=== PATIENT | female | born 1995 | race Caucasian/White ===

== ENCOUNTER 2017-08-27 09:54 | Emergency (ER) | payer OTHER ==
[2017-08-27 10:10] VITALS: BP 138/72; PULSE 96; TEMP 98.5; BMI 33.6
--- NOTE | 2017-08-27 11:55 | PDOC ---
History of Present Illness - General Chief Complaint: Sore Throat Stated Complaint: COUGH, THROAT PAIN Time Seen by Provider: 08/27/17 10:35 History Source: Patient Exam Limitations: No Limitations - History of Present Illness Initial Comments: 08/27/17 11:51 Mom came in with 9-month-old son, both ill with cough, fevers, earache and sore throat pain. Runny nose of clear drainage, general body aches. Modifying Factors: improves with: cold therapy Associated Symptoms: reports: cough, fever/chills, headaches, malaise Past History - Travel Traveled outside of the country in the last 30 days: No Close contact w/someone who was outside of country & ill: No - Past Medical History Allergies/Adverse Reactions: Allergies Allergy/AdvReac Type Severity Reaction Status Date / Time No Known Allergies Allergy Verified 08/27/17 10:10 Home Medications: Ambulatory Orders Oseltamivir Phosphate [Tamiflu -] 75 mg PO BID #10 capsule 08/27/17 COPD: No - Suicide/Smoking/Psychosocial Hx Smoking History: Never smoked Review of Systems - Review of Systems Able to Perform ROS?: Yes Is the patient limited Kazakh proficient: Yes Constitutional: Yes: Symptoms Reported, See HPI, Chills, Fever, Malaise HEENTM: Yes: Symptoms Reported, See HPI, Nose Congestion Respiratory: Yes: See HPI, Cough, Wheezing ABD/GI: Yes: Symptoms Reported Integumentary: Yes: Symptoms Reported All Other Systems: Reviewed and Negative *Physical Exam - Vital Signs Last Vital Signs Temp Pulse Resp BP Pulse Ox 98.5 F 96 H 18 138/72 99 08/27/17 10:07 08/27/17 10:07 08/27/17 10:07 08/27/17 10:07 08/27/17 10:07 - Physical Exam General Appearance: Yes: Nourished, Appropriately Dressed, Apparent Distress HEENT: positive: TMs Normal (just a but landmarks easily visualized), Nasal Congestion, Rhinorrhea. 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 intact, Fully Oriented, Alert, Normal Mood/ Affect, Normal Response, Motor Strength 11/19 ED Treatment Course - ADDITIONAL ORDERS Additional order review: Laboratory Results 08/27/17 11:07 Urine HCG, Qual Negative *DC/Admit/Observation/Transfer Diagnosis at time of Disposition: Influenzal acute upper respiratory infection - Discharge Dispostion Disposition: HOME Condition at time of disposition: Stable Admit: No - Referrals - Patient Instructions Printed Discharge Instructions: DI for Viral Upper Respiratory Infection -- Adult Additional Instructions: Rest, drink lots of fluids: Teas, water, soups, Pedialyte Saltwater gargles Steamy showers/seem to face break up mucus Old-fashioned treatments help! Avoid contact with others until fevers and cough resolved as this is very contagious Lots of handwashing and good hygiene Continue [id number] medications for symptomatic relief Tylenol or Motrin for fever and pain Take all of Tamiflu as directed: 1 tab every 12 hours for 5 days Followup with private physician in one to 2 days as needed or if worsening Return to emergency department for worsened symptoms, fevers, dehydration Influenza takes between 5 and 7 days for resolution To not participate in any activity, work, or school until fevers and cough are gone for at least one day - Post Discharge Activity Forms/Work/School Notes: Back to Work
== END 2017-08-27 12:06 | disposition home or self-care (01) ==
LOC: JERFT 09:54
DX: J11.1 Influenza due to unidentified influenza virus with other respiratory manifestations (principal); B97.89 Other viral agents as the cause of diseases classified elsewhere
CPT/HCPCS: 84703; 99281-25

== ENCOUNTER 2017-11-21 23:49 | Emergency (ER) | payer OTHER ==
--- NOTE | 2017-11-22 00:15 | PDOC ---
History of Present Illness - General Chief Complaint: Pain, Acute Stated Complaint: KNEE INJURY Time Seen by Provider: 11/22/17 00:14 History Source: Patient - History of Present Illness Initial Comments: 11/22/17 01:04 22 year old female reports feeling a pop to left knee while playing on the trampoline. as per patient patient unable to fully weight bear due to extreme pain. LMP: 11/21/2017 pmhx : asthma Past History - Past Medical History Allergies/Adverse Reactions: Allergies Allergy/AdvReac Type Severity Reaction Status Date / Time No Known Allergies Allergy Verified 11/22/17 00:18 Home Medications: Ambulatory Orders NK [No Known Home Medication] 11/22/17 COPD: No - Suicide/Smoking/Psychosocial Hx Smoking History: Never smoked Review of Systems - Review of Systems Able to Perform ROS?: Yes Is the patient limited Bhutanese proficient: No Constitutional: No: Symptoms Reported, See HPI, Chills, Diaphoresis, Fever, Loss of Appetite, Malaise, Night Sweats, Weakness, Weight Stable, Unintentional Wgt. Loss, Unexplained wgt Loss, Other Musculoskeletal: Yes: Joint Pain (left knee pain) *Physical Exam - Vital Signs 11/22/17 01:07 Last Vital Signs Temp Pulse Resp BP Pulse Ox 97.4 F L 82 20 118/76 99 11/22/17 00:18 11/22/17 00:18 11/22/17 00:18 11/22/17 00:18 11/22/17 00:18 - Physical Exam General Appearance: Yes: Appropriately Dressed Musculoskeletal: positive: Decreased Range of Motion Extremity: positive: Other (limited rom of left knee, unable to weightbear. no swelling no deformity. able leg raise) Integumentary: positive: Normal Color, Dry, Warm Neurologic: positive: Fully Oriented, Alert, Normal Mood/Affect Heart Score/ECG Review - ECG Intrepretation Rhythm: Regular Rhythm Comment:: 12/09/17 05:52 nsr: 91 bpm prolonged Qt: 408/501ms Progress Note - Progress Note Progress Note: A: left knee injury P xray knee immobilizer ortho follow up *DC/Admit/Observation/Transfer Diagnosis at time of Disposition: Injury of left knee Qualifiers: Encounter type: initial encounter Qualified Code(s): S89.92XA - Unspecified injury of left lower leg, initial encounter Left knee sprain Qualifiers: Encounter type: initial encounter Involved ligament of knee: other ligament Qualified Code(s): S83.8X2A - Sprain of other specified parts of left knee, initial encounter - Discharge Dispostion Disposition: HOME - Referrals Referrals: Aziza Morris [Primary Care Provider] - Avi Castorena MD [Staff Physician] - Call tomorrow - Patient Instructions Printed Discharge Instructions: Knee Sprain Additional Instructions: keep knee splint on for comfort use crutches as instructed. follow up with an orthopedic doctor as soon as possible. rest, ice elevate extremity - Post Discharge Activity Forms/Work/School Notes: Back to Work
[2017-11-22 00:20] VITALS: BP 118/76; PULSE 82; TEMP 97.4; BMI 30.8
== END 2017-11-22 02:48 | disposition home or self-care (01) ==
LOC: JER 23:49
DX: S83.8X2A Sprain of other specified parts of left knee, initial encounter (principal); X50.3XXA Overexertion from repetitive movements, initial encounter; Y93.44 Activity, trampolining; Y92.89 Other specified places as the place of occurrence of the external cause; Y99.8 Other external cause status
CPT/HCPCS: 73562-TC-LT-FY; 99283-25